=== PATIENT | female | born 1960 | race Two or more races ===

== ENCOUNTER 2024-05-08 12:50 | Emergency (ER) | payer OTHER ==
[~2024-05-08] VITALS: Ht 154.9 cm; Wt 56.2 kg
[2024-05-08 13:41] LABS: BASOPHILS # (AUTO) 0.1 K/UL (0.0-0.2); EOSINOPHILS # (AUTO) 0.1 K/uL (0.0-0.7); EOSINOPHILS % (AUTO) 1.5 % (0.0-7.0); HEMATOCRIT 36.8 % (31.2-41.9); HEMOGLOBIN 12.4 g/dL (10.9-14.3); LYMPHOCYTES # (AUTO) 1.4 K/uL (0.8-4.8); LYMPHOCYTES % (AUTO) 25.6 % (20.5-51.5); MEAN CORPUSCULAR HEMOGLOBIN 29.5 uug (24.7-32.8); MEAN CORPUSCULAR HGB CONC 34 g/dL (32.3-35.6); MEAN CORPUSCULAR VOLUME 87.5 fL (75.5-95.3); MONOCYTES # (AUTO) 0.5 K/uL (0.1-1.30); MONOCYTES % (AUTO) 9.2 % (0.0-11.0); NEUTROPHILS # (AUTO) 3.5 K/uL (1.8-8.9); NEUTROPHILS % (AUTO) 62.7 % (38.5-71.5); PLATELET COUNT (AUTO) 264 K/uL (179-408); WHITE BLOOD COUNT (AUTO) 5.5 K/uL (3.8-11.8)
[2024-05-08] MEDS ORDERED: diphenhydrAMINE 50 MG/1 ML VIAL ONE (13:49)
[2024-05-08] MEDS ORDERED: KETOROLAC TROMETHAMINE 30 MG INJ ONE (13:49)
[2024-05-08] MEDS ORDERED: METOCLOPRAMIDE HCL 10 MG/2 ML VIAL ONE (13:49)
[2024-05-08] MEDS ORDERED: LORAZEPAM 2 MG/1 ML VIAL ONE (13:50)
[2024-05-08 13:51] LABS: ERYTHROCYTE SEDIMENTATION RATE 26 MM/HR (0-20)
[2024-05-08 13:55] LABS: ALBUMIN 3.6 g/dL (3.4-5.0); BILIRUBIN,TOTAL 0.3 mg/dL (0.2-1.0); CALCIUM 9.2 mg/dL (8.5-10.1); CREATININE 0.7 mg/dL (0.6-1.3); MAGNESIUM 2.2 mg/dL (1.8-2.4); POTASSIUM 4.8 mmol/L (3.5-5.1); TOTAL PROTEIN, SERUM 7.6 g/dL (6.4-8.2)
[2024-05-08] MEDS: LORAZEPAM 2 MG/1 ML VIAL IV ONE (14:00)
[2024-05-08] MEDS: diphenhydrAMINE 50 MG/1 ML VIAL IV ONE (14:01)
[2024-05-08] MEDS: KETOROLAC TROMETHAMINE 30 MG INJ IVP ONE (14:01)
[2024-05-08] MEDS: IV NS 1000 ML 1,000 ML IV ONE (14:01)
[2024-05-08] MEDS: METOCLOPRAMIDE HCL 10 MG/2 ML VIAL IV ONE (14:01)
[2024-05-08] MEDS ORDERED: SWABABLE VALVE TRANSFER SET EA MC ONE (14:10)
[2024-05-08] MEDS ORDERED: IOHEXOL 350 100 ML INFUS..BTL ONE (14:10)
[2024-05-08] MEDS ORDERED: IV NORMAL SALINE 250 ML IV ONE (14:11)
[2024-05-08] MEDS ORDERED: NAPR500T6 PO (15:52)
[2024-05-08] MEDS ORDERED: METO-295 PO (15:52)
[2024-05-08] MEDS ORDERED: DIPH25CA83 PO (15:52)
[2024-05-08 16:27] VITALS: BP 160/103; O2SAT 99
== END 2024-05-08 16:31 | disposition home or self-care (01) ==
LOC: ER 12:50
DX: G43.909 Migraine, unspecified, not intractable, without status migrainosus (principal); F41.9 Anxiety disorder, unspecified; F32.A Depression, unspecified
CPT/HCPCS: 99285; 70450; 96374; 96375; 96361; 80053; 83735; 85025; 85651; 36415; 70498; J1885; J1200; J2060; J2765; Q9967; J7040; A4606; A4663